=== PATIENT | male | born 1980 | race Caucasian/White ===

== ENCOUNTER 2016-12-18 19:43 | Emergency (ER) | payer SELFPAY ==
--- NOTE | 2016-12-18 20:44 | ED Physician Chart ---
Chief Complaint/HPI - Patient Information Date Seen:: 12/18/16 Time Seen:: 20:40 Chief Complaint:: abd p History of Present Illness:: pt w abd p all over (and rt cva pain also) x 2 weeks. no n/v/d. denies constipation. never had this pain before. pain is worse when he eats but he is eating ok. no fever. no urine changes. no hematuria. no meds tried. no prior dr visits. no hx of abd problems. Allergies:: Allergies Allergy/AdvReac Type Severity Reaction Status Date / Time No Known Allergies Allergy Verified 07/30/16 19:16 Vitals:: Vital Signs - 8 hr 12/18/16 20:14 Temp 97.5 F HR 71 RR 18 BP 126/77 O2 Sat % 97 Historian:: Patient Review of Systems - Review of Systems General/Constitutional: No fever, No chills, No weight loss, No weakness, No diaphoresis, No edema, No loss of appetite Skin: No skin lesions, No rash, No bruising Head: No headache, No light-headedness Eyes: No loss of vision, No pain, No diplopia ENT: No earache, No nasal drainage, No sore throat, No tinnitus Neck: No neck pain, No swelling, No thyromegaly, No stiffness, No mass noted Cardio Vascular: No chest pain, No palpitations, No PND, No orthopnea, No edema Pulmonary: No SOB, No cough, No sputum, No wheezing GI: No nausea, No vomiting, No diarrhea, Pain, No melena, No hematochezia, No constipation, No hematemesis G/U: No dysuria, No frequency, No hematuria Musculoskeletal: No bone or joint pain, No back pain, No muscle pain Endocrine: No polyuria, No polydipsia Psychiatric: No prior psych history, No depression, No anxiety, No suicidal ideation Hematopoietic: No bruising, No lymphadenopathy Allergic/Immuno: No urticaria, No angioedema Neurological: No syncope, No focal symptoms, No weakness, No paresthesia, No headache, No seizure, No dizziness, No confusion, No vertigo Past Medical History - Past Medical History Past Medical History: No significant medical hx Social History: Non Smoker, No Drug Use Medication: None Family Medical History - Family Member Mother History Unknown: Yes Physical Exam - Physical Examination General/Constitutional: Awake, Well-developed, well-nourished, Alert, No distress, GCS 15, Non-toxic appearing, Ambulatory Other Gen/Cons comments:: alert and ambulatory in no overt distress. wn/wh. nontoxic. Head: Atraumatic Eyes: Lids, conjuctiva normal, PERRL, EOMI Skin: Nl inspection, No rash, No skin lesions, No ecchymosis, Well hydrated, No lymphadenopathy ENMT: External ears, nose nl, Nasal exam nl, Lips, teeth, gums nl Neck: Nontender, Full ROM w/o pain, No JVD, No nuchal rigidity, No bruit, No mass, No stridor Respiratory: Nl effort/Exclusion, Clear to Auscultation, No Wheeze/Rhonchi/Rales Cardio Vascular: RRR, No murmur, gallop, rubs, NL S1 S2 GI: No tenderness/rebounding/guarding, No organomegaly, No hernia, Normal BS's, Nondistended, No mass/bruits, No McBurney tenderness Other GI comments:: vague mild tndr all over. no aaa. no mass. pos nabs. no discreet tndr area. mild l cva tndr. ok motility. good peripheral pulses. no edema. : No CVA tenderness Extremities: No tenderness or effusion, Full ROM, normal strength in all extremities, No edema, Normal digits & nails Neuro/Psych: Alert/oriented, DTR's symmetric, Normal sensory exam, Normal motor strength, Judgement/insight normal, Mood normal, Normal gait, No focal deficits Misc: normal gait, Normal back, No paraspinal tenderness Labs/Radiology/EKG Results - Lab Results Results: Laboratory Tests 12/18/16 12/18/16 12/18/16 20:50 20:52 20:52 WBC 6.3 RBC 5.36 Hgb 16.1 Hct 47.1 MCV 87.8 MCH 29.9 MCHC Differential 34.1 RDW 12.0 Plt Count 212 D MPV 7.8 Neutrophils % 49.6 Lymphocytes % 38.4 Monocytes % 8.7 Eosinophils % 3.2 Basophils % 0.1 Sodium 134 L Potassium 4.0 Chloride 104 Carbon Dioxide 29.5 Anion Gap 4.5 L BUN 12 Creatinine 1.0 Est GFR ( Amer) > 60.0 Est GFR (Non-Af Amer) > 60.0 BUN/Creatinine Ratio 12.0 Glucose 99 Calcium 9.8 Total Bilirubin 0.6 AST 23 ALT 51 Alkaline Phosphatase 81 Total Protein 7.5 Albumin 4.7 Globulin 2.8 Albumin/Globulin Ratio 1.7 Lipase 22 Urine Source CLEAN C Urine Color YELLOW Urine Clarity CLEAR Urine pH 6.0 Ur Specific Warren 1.020 Urine Protein NEGATIVE Urine Glucose (UA) NEGATIVE Urine Ketones NEGATIVE Urine Blood NEGATIVE Urine Nitrate NEGATIVE Urine Bilirubin NEGATIVE Urine Urobilinogen 0.2 Ur Leukocyte Esterase NEGATIVE Urine RBC NONE SEEN Urine WBC NONE SEEN Ur Epithelial Cells NONE SEEN Urine Bacteria NONE SEEN - Radiology Results Results: ct abd-p - wnl/nrml/nad ED Septic Shock - . Is Septic Shock (SBP<90, OR Lactate>4 mmol\L) present?: No - <6hrs of presentation: Vital Signs: Vital Signs - 8 hr 12/18/16 20:14 Temp 97.5 F HR 71 RR 18 BP 126/77 O2 Sat % 97 Reassessment (Disposition) - Reassessment Reassessment:: results reviewed w pt and gf. pt has worse pains w eating. considering gastritis high prob. also he says hes under much stress lately. denies gassy. will give dose and rx protonix. may use maalox /pepto b etc for breakthru pain. advised to see pmd for rechk in next few days or may ret if worse Reassessment Condition:: Improved - Diagnosis Diagnosis:: 1 abdominal pain 2 likely gastritis - Aftercare/Follow up Instructions Aftercare/Follow-Up Instructions:: Counseled pt & family regarding lab results/ diagnosis & need follow up - Patient Disposition Discharge/Transfer:: Home Condition at Disposition:: Improved
[2016-12-18] MEDS ORDERED: Sodium Chloride 0.9% 1,000 ML IV ONE (20:45)
[2016-12-18 20:59] LABS: % BASOPHILS 0.1 % (0.0-2.0); % EOSINOPHILS 3.2 % (0.0-5.0); % LYMPHOCYTES 38.4 % (20.0-50.0); % MONOCYTES 8.7 % (2.0-10.0); % NEUTROPHILS 49.6 % (40.0-80.0); HEMATOCRIT 47.1 % (39.0-49.0); HEMOGLOBIN 16.1 gm/dL (13.2-17.3); MEAN CELL VOLUME 87.8 fl (80-99); MEAN CORPUSCULAR HEMOGLOBIN 29.9 pg (26.0-30.0); MEAN CORPUSCULAR HGB CONC 34.1 pg (28.0-36.0); MEAN PLATELET VOLUME 7.8 fl; NEUTROPHILE ABSOLUTE 3.2 Th/cmm (1.8-8.0); RED BLOOD COUNT 5.36 Mil/cmm (4.30-5.70); WHITE BLOOD COUNT 6.3 Th/cmm (4.8-10.8)
[2016-12-18 21:04] LABS: PLATELET COUNT 212 Th/cmm (150-400)
[2016-12-18 21:17] LABS: ALB/GLOB RATIO 1.7 (1.0-1.8); ALKALINE PHOSPHATASE 81 U/L (34-104); ANION GAP 4.5 (7.0-16.0); BILIRUBIN,TOTAL 0.6 mg/dL (0.3-1.0); BUN - UREA NITROGEN 12 mg/dL (7-25); CALCIUM SERUM 9.8 mg/dL (8.6-10.3); CARBON DIOXIDE 29.5 mEq/L (21.0-31.0); CHLORIDE 104 mEq/L (98-107); GLUCOSE 99 mg/dL (70-105); LIPASE 22 U/L (11-82); SGOT 23 U/L (13-39); SGPT/ALT 51 U/L (7-52); SODIUM SERUM 134 mEq/L (136-145)
[2016-12-18 21:35] LABS: URINE BILIRUBIN NEGATIVE (NEGATIVE); URINE BLOOD NEGATIVE (NEGATIVE); URINE COLOR YELLOW; URINE GLUCOSE (UA) NEGATIVE (NEGATIVE); URINE KETONE NEGATIVE (NEGATIVE); URINE PROTEIN NEGATIVE (NEGATIVE); URINE UROBILINOGEN 0.2 E.U./dL (0.2 - 1.0)
[2016-12-18 21:36] LABS: URINE BACTERIA NONE SEEN /hpf (NONE SEEN); URINE EPITHELIAL CELLS NONE SEEN /lpf (FEW); URINE RBC NONE SEEN /hpf (0-5); URINE WBC NONE SEEN /hpf (0-5)
[2016-12-18] MEDS ORDERED: Morphine Sulfate 4 mg/mL 1mL Syr IVP STA (21:44)
[2016-12-18] MEDS ORDERED: Morphine Sulfate 4 mg/mL 1mL Syr ONE (22:03)
[2016-12-18] MEDS ORDERED: Pantoprazole 40 mg EC Tab PO STA (22:31)
[2016-12-18] MEDS ORDERED: Pantoprazole 40 mg EC Tab PO ONE (22:56)
--- NOTE | 2016-12-19 10:53 | Diagnostic Imaging Report ---
CT scan of the abdomen and pelvis without intravenous contrast History: Pain Total DLP equals 453 CTDI equals 8.5 Axial sections were obtained from the xiphoid process down to the pubic symphysis. The liver demonstrates a normal size and contour. No focal lesions are seen. The spleen appears normal. No abnormalities are seen in the region of the pancreas. The kidneys appear normal bilaterally. The exam of the pelvis demonstrates preservation of normal fat planes. No abnormal soft tissue masses. No abnormal fluid collections. There is a small fat-containing right inguinal hernia. Impression: 1. No acute abnormalities 2. Small fat-containing right inguinal hernia is a subtle
== END 2016-12-18 23:10 | disposition home or self-care (01) ==
LOC: ER 19:43
DX: R10.9 Unspecified abdominal pain (principal)
CPT/HCPCS: 99285; 96361; 96374; 96375; 74176; 36415; 85025; 81001; 83690; 80053; J2405; J7030; Z7610